=== PATIENT | female | born 1940 | race Two or more races ===

== ENCOUNTER 2020-06-07 18:44 | Emergency (ER) | payer MEDICARE, OTHER ==
[~2020-06-07] VITALS: Ht 144.8 cm; Wt 63.5 kg
[2020-06-07 20:45] VITALS: BP 167/63
[2020-06-07] MEDS: KETOROLAC TROMETH 60MG/2ML VIAL IM ONE (21:18)
[2020-06-07] MEDS: ACETAMINOPHEN 500 MG TAB PO ONE (21:18)
== END 2020-06-07 22:11 | disposition home or self-care (01) ==
LOC: ER 18:44
DX: S46.911A Strain of unspecified muscle, fascia and tendon at shoulder and upper arm level, right arm, initial encounter (principal); E11.9 Type 2 diabetes mellitus without complications; E78.5 Hyperlipidemia, unspecified; R51.9 Headache, unspecified; M54.2 Cervicalgia; W18.39XA Other fall on same level, initial encounter; Y93.89 Activity, other specified; Y92.89 Other specified places as the place of occurrence of the external cause; Y99.8 Other external cause status
CPT/HCPCS: 70450; 72125; 73030; 96372; 99285; J1885